=== PATIENT | male | born 1945 | race Caucasian/White ===

== ENCOUNTER 2016-10-09 12:02 | Inpatient (IN) | payer MEDICARE, BC ==
[~2016-10-09] VITALS: Ht 179.1 cm; Wt 117.0 kg
[~2016-10-09 12:02] MED LIST: ALIR75PE SQ; AMLO10TA2 PO; AMLO2.5T PO; AMLO5TAB2 PO; ASPI-496 PO; ASPI-621 PO; CALC-362 PO; CHOL100018 PO; CLON0.2T PO; CLOP75TA22 PO; DOCU-30 PO; DOXA8TAB63 PO; FEBU80TA2 PO; FURO20TA3 PO; HYDR-3343 PO; NEBI10TA3 PO; OMEG1CAP34 PO; OMEP-110 PO; SODI650T PO; SPIR25TA3 PO
[2016-10-09] MEDS ORDERED: SODIUM CHLORIDE 0.9% 1,000ML IVBOLUS ONE (13:00)
[2016-10-09] MEDS ORDERED: FAMOTIDINE 20 MG/2 ML IVPush ONE (13:00)
[2016-10-09] MEDS ORDERED: SODIUM CHLORIDE FLUSH 10ML SYR IVF ONE (13:00)
[2016-10-09] MEDS ORDERED: ONDANSETRON 2MG/ML, 2ML IVPush ONE (13:00)
[2016-10-09 13:37] LABS: ASPARTATE AMINO TRANSFERASE 16 U/L (15-37)
[2016-10-09 13:39] LABS: BLOOD UREA NITROGEN 126 mg/dL (7-18)
[2016-10-09] MEDS ORDERED: PANTOPRAZOLE 80 MG in SODIUM CHLORIDE 0.9% 100 ML IVPB ONE (14:21)
[2016-10-09] MEDS ORDERED: SODIUM CHLORIDE 0.9% 1,000 ML IV ONE (14:39)
[2016-10-09] MEDS ORDERED: ACETAMINOPHEN 325 MG TABLET PO PRN (15:00)
[2016-10-09] MEDS ORDERED: ONDANSETRON 2MG/ML, 2ML IVPush PRN (15:00)
[2016-10-09] MEDS ORDERED: TEMAZEPAM 15 MG CAPSULE PO PRN (15:00)
[2016-10-09] MEDS ORDERED: SODIUM POLYSTYRENE SULFONATE ORAL SUSP PO ONE (15:00)
[2016-10-09] MEDS ORDERED: SODIUM CHLORIDE FLUSH 10ML SYR IVF PRN (15:00)
[2016-10-09] MEDS ORDERED: HYDROcodone/APAP 5/325 TABLET PO PRN (15:00)
[2016-10-09 16:01] VITALS: BP 179/70
[2016-10-09] MEDS ORDERED: hydrALAzine 20 MG/ML, 1ML IV PRN (17:00)
[2016-10-09] MEDS: PANTOPRAZOLE 80 MG in SODIUM CHLORIDE 0.9% 100 ML IV SCH ×2 (17:02→17:40)
[2016-10-09] MEDS: SODIUM CHLORIDE 0.9% 1,000 ML IV SCH (17:40)
[2016-10-09] MEDS: SODIUM BICARBONATE 650 MG TABLET PO SCH ×2 (17:40→22:37)
[2016-10-09 19:00] VITALS: BP 122/63
[2016-10-09 19:01] LABS: ASPARTATE AMINO TRANSFERASE 16 U/L (15-37)
[2016-10-09 19:53] LABS: PATH.CAST-FLAG NOT PRESENT; SPERM-FLAG NOT PRESENT; SRC-FLAG NOT PRESENT; XTAL-FLAG NOT PRESENT; YLC-FLAG NOT PRESENT
[2016-10-09] MEDS: DOCUSATE 100 MG CAPSULE PO SCH (21:00)
[2016-10-09] MEDS: NEBIVOLOL HCL 5 MG TABLET PO SCH (22:37)
[2016-10-09] MEDS: AMLODIPINE 2.5 MG TABLET PO SCH (22:37)
[2016-10-09] MEDS: TAMSULOSIN 0.4 MG CAP.ER.24H PO SCH (23:16)
[2016-10-10] VITALS (10 sets, daily range): BP systolic 118–147; BP diastolic 45–76
[2016-10-10] MEDS: PANTOPRAZOLE 80 MG in SODIUM CHLORIDE 0.9% 100 ML IV SCH ×5 (00:21→21:16)
[2016-10-10 05:57] LABS: BLOOD UREA NITROGEN 100 mg/dL (7-18)
[2016-10-10] MEDS: SODIUM CHLORIDE 0.9% 1,000 ML IV SCH (06:41)
[2016-10-10] MEDS: DOCUSATE 100 MG CAPSULE PO SCH ×2 (09:00→20:36)
[2016-10-10] MEDS: SODIUM BICARBONATE 650 MG TABLET PO SCH (09:00)
[2016-10-10] MEDS: AMLODIPINE 2.5 MG TABLET PO SCH ×2 (09:00→20:36)
[2016-10-10] MEDS: NEBIVOLOL HCL 5 MG TABLET PO SCH ×2 (09:00→20:36)
[2016-10-10] MEDS ORDERED: FENTANYL PF 100 MCG/2ML ONE (11:49)
[2016-10-10] MEDS ORDERED: DARBEPOETIN 100 MCG/ML SQ SCH (12:00)
[2016-10-10] MEDS: FEBUXOSTAT 40 MG TABLET PO SCH (12:17)
[2016-10-10] MEDS: TAMSULOSIN 0.4 MG CAP.ER.24H PO SCH (20:36)
[2016-10-11 01:53] VITALS: BP 128/71
[2016-10-11 06:02] LABS: ASPARTATE AMINO TRANSFERASE 13 U/L (15-37)
[2016-10-11 06:08] LABS: BLOOD UREA NITROGEN 77 mg/dL (7-18)
[2016-10-11 07:46] VITALS: BP 133/66
[2016-10-11] MEDS: NEBIVOLOL HCL 5 MG TABLET PO SCH ×2 (08:04→20:46)
[2016-10-11] MEDS: DOCUSATE 100 MG CAPSULE PO SCH ×2 (08:05→20:47)
[2016-10-11] MEDS: FEBUXOSTAT 40 MG TABLET PO SCH (08:05)
[2016-10-11] MEDS: AMLODIPINE 2.5 MG TABLET PO SCH ×2 (08:05→20:47)
[2016-10-11] MEDS: PANTOPRAZOLE 80 MG in SODIUM CHLORIDE 0.9% 100 ML IV SCH ×2 (08:54→20:30)
[2016-10-11] MEDS ORDERED: PROPOFOL 10 MG/ML, 20ML ONE (10:36)
[2016-10-11 12:12] LABS: HEP B SURF. AB < 3.1 mIU/mL (0.0-10.0)
[2016-10-11 14:14] VITALS: BP 119/66
[2016-10-11] MEDS ORDERED: BUPIVACAINE/PF-EPI 0.25% 1:200K ONE (17:37)
[2016-10-11] MEDS ORDERED: HEPARIN 1,000 UNITS/ML, 10ML ONE (17:37)
[2016-10-11] MEDS ORDERED: KETAMINE 10 MG/ML, 20ML ONE (17:38)
[2016-10-11] MEDS ORDERED: FENTANYL PF 100 MCG/2ML ONE (17:39)
[2016-10-11] MEDS ORDERED: ALBUTEROL SULFATE 2.5 MG/3 ML NPPB PRN (18:00)
[2016-10-11] MEDS ORDERED: HYDROmorphone 1 MG/ML, 1ML IV PRN (18:00)
[2016-10-11] MEDS ORDERED: hydrALAzine 20 MG/ML, 1ML IV PRN (18:00)
[2016-10-11] MEDS ORDERED: METOPROLOL 1 MG/ML, 5ML IV PRN (18:00)
[2016-10-11] MEDS ORDERED: FENTANYL PF 100 MCG/2ML IV PRN (18:00)
[2016-10-11] MEDS ORDERED: ACETAMINOPHEN 325 MG TABLET PO PRN (18:00)
[2016-10-11] MEDS ORDERED: ACETAMINOPHEN 325 MG TABLET ONE (19:05)
[2016-10-11] MEDS: TAMSULOSIN 0.4 MG CAP.ER.24H PO SCH (20:47)
[2016-10-12 00:44] VITALS: BP 110/72
[2016-10-12 05:50] LABS: BLOOD UREA NITROGEN 63 mg/dL (7-18)
[2016-10-12] MEDS: PANTOPRAZOLE 80 MG in SODIUM CHLORIDE 0.9% 100 ML IV SCH (07:09)
[2016-10-12 08:00] VITALS: BP 121/58
[2016-10-12] MEDS: FEBUXOSTAT 40 MG TABLET PO SCH (08:36)
[2016-10-12] MEDS ORDERED: OMEP40CA6 PO (09:59)
[2016-10-12 14:00] VITALS: BP 112/61
== END 2016-10-12 17:15 | disposition home or self-care (01) | DRG 356 ==
LOC: SUATTDRO 14:29 → ED 14:38 → EDIP 14:39 → ED 15:13 → 4WST 15:58 → DCLOUNGE 10-12 15:50
PROC: 5A1D60Z (ICD-10-PCS; 2016-10-09)
PROC: 0W3P8ZZ Control Bleeding in Gastrointestinal Tract, Via Natural or Artificial Opening Endoscopic (ICD-10-PCS; 2016-10-10)
PROC: 30233N1 Transfusion of Nonautologous Red Blood Cells into Peripheral Vein, Percutaneous Approach (ICD-10-PCS; principal; 2016-10-10 13:30)
PROC: 0WPG33Z Removal of Infusion Device from Peritoneal Cavity, Percutaneous Approach (ICD-10-PCS; 2016-10-11)
PROC: 0WHG33Z Insertion of Infusion Device into Peritoneal Cavity, Percutaneous Approach (ICD-10-PCS; 2016-10-11)
DX: K31.811 Angiodysplasia of stomach and duodenum with bleeding (principal); K85.90 Acute pancreatitis without necrosis or infection, unspecified; N18.6 End stage renal disease; E44.0 Moderate protein-calorie malnutrition; E87.2 Acidosis; I13.11 Hypertensive heart and chronic kidney disease without heart failure, with stage 5 chronic kidney disease, or end stage renal disease; N17.9 Acute kidney failure, unspecified; K92.1 Melena; D50.0 Iron deficiency anemia secondary to blood loss (chronic); D63.1 Anemia in chronic kidney disease; E87.5 Hyperkalemia; G47.33 Obstructive sleep apnea (adult) (pediatric); I35.0 Nonrheumatic aortic (valve) stenosis; Z66 Do not resuscitate; Z96.643 Presence of artificial hip joint, bilateral; I25.10 Atherosclerotic heart disease of native coronary artery without angina pectoris; K62.7 Radiation proctitis; M10.00 Idiopathic gout, unspecified site; Z68.36 Body mass index [BMI] 36.0-36.9, adult; Z82.49 Family history of ischemic heart disease and other diseases of the circulatory system; Z85.46 Personal history of malignant neoplasm of prostate; Z87.891 Personal history of nicotine dependence; Z92.3 Personal history of irradiation; Z95.5 Presence of coronary angioplasty implant and graft; Z99.2 Dependence on renal dialysis; Z88.8 Allergy status to other drugs, medicaments and biological substances
CPT/HCPCS: 36415; 76700; 80048; 80053; 80069; 80076; 81001; 82306; 82436; 82570; 82728; 83540; 83550; 83690; 83735; 83970; 84100; 84133; 84300; 84478; 84550; 85018; 85025; 85610; 85730; 86480; 86677; 86704; 86706; 86850; 86900; 86923; 87340; 93005; 99152; 99291; J0881; J1644; J2704; J3010; C9113; J7030; P9016

== ENCOUNTER 2016-10-29 10:56 | Day surgery (SDC) | payer MEDICARE, BC ==
[~2016-10-29] VITALS: Ht 179.1 cm; Wt 115.0 kg
[~2016-10-29 10:56] MED LIST changes: +CEFAZOLIN 1,000 MG ONE; +OMEP40CA6 PO; +ONDANSETRON 2MG/ML, 2ML ONE; +PROPOFOL 10 MG/ML, 20ML ONE; +ROCURONIUM 10 MG/ML ONE
[2016-10-29 11:31] VITALS: BP 121/66
[2016-10-29] MEDS ORDERED: LACTATED RINGERS 1,000 ML IV SCH (11:33)
[2016-10-29 13:18] LABS: ASPARTATE AMINO TRANSFERASE 20 U/L (15-37); BLOOD UREA NITROGEN 50 mg/dL (7-18)
[2016-10-29] MEDS ORDERED: BUPIVACAINE/PF-EPI 0.5% 1:200K ONE (13:23)
[2016-10-29] MEDS ORDERED: FENTANYL PF 250 MCG/5ML ONE (13:26)
[2016-10-29] MEDS ORDERED: MIDAZOLAM 1 MG/ML, 2ML IV PRN (14:00)
[2016-10-29] MEDS ORDERED: ONDANSETRON 2MG/ML, 2ML IVPush PRN (14:00)
[2016-10-29] MEDS ORDERED: PROMETHAZINE 25 MG/ML, 1ML IV PRN (14:00)
[2016-10-29] MEDS ORDERED: LABETALOL 5MG/ML, 20ML IV PRN (14:00)
[2016-10-29] MEDS ORDERED: hydrALAzine 20 MG/ML, 1ML IV PRN (14:00)
[2016-10-29] MEDS ORDERED: OXYcodone 5 MG/5 ML ORAL.SOL UDC PO PRN (14:00)
[2016-10-29] MEDS: FENTANYL PF 100 MCG/2ML IV PRN ×2 (15:10→15:21)
[2016-10-29] MEDS ORDERED: FENTANYL PF 100 MCG/2ML ONE (15:11)
[2016-10-29] MEDS ORDERED: HYDROmorphone 2 MG/ML, 1ML ONE (15:22)
[2016-10-29] MEDS: HYDROmorphone 1 MG/ML, 1ML IV PRN ×4 (15:26→15:59)
== END 2016-10-29 19:45 | disposition home or self-care (01) ==
LOC: OUT 10:56
PROVIDERS: ATTEND Surgery
DX: T85.691A Other mechanical complication of intraperitoneal dialysis catheter, initial encounter (principal); G47.33 Obstructive sleep apnea (adult) (pediatric); I12.0 Hypertensive chronic kidney disease with stage 5 chronic kidney disease or end stage renal disease; N18.6 End stage renal disease; Z99.2 Dependence on renal dialysis; Z85.46 Personal history of malignant neoplasm of prostate; Z95.5 Presence of coronary angioplasty implant and graft; Z88.8 Allergy status to other drugs, medicaments and biological substances; Y83.8 Other surgical procedures as the cause of abnormal reaction of the patient, or of later complication, without mention of misadventure at the time of the procedure
CPT/HCPCS: 36415; 49325; 80053; 85025; C1727; C1769; J0690; J1170; J2405; J2704; J3010; J7120

== ENCOUNTER 2016-11-12 06:49 | Day surgery (SDC) | payer MEDICARE, BC ==
[~2016-11-12] VITALS: Ht 180.3 cm; Wt 114.5 kg
[~2016-11-12 06:49] MED LIST changes: -CEFAZOLIN 1,000 MG ONE; -ONDANSETRON 2MG/ML, 2ML ONE; -PROPOFOL 10 MG/ML, 20ML ONE; -ROCURONIUM 10 MG/ML ONE
[2016-11-12] MEDS ORDERED: SODIUM CHLORIDE 0.9% 1,000 ML IV SCH (07:22)
[2016-11-12 07:43] VITALS: BP 132/79
[2016-11-12] MEDS ORDERED: MIDAZOLAM 1 MG/ML, 2ML ONE (08:44)
[2016-11-12] MEDS ORDERED: FENTANYL PF 250 MCG/5ML ONE (08:44)
[2016-11-12] MEDS ORDERED: BUPIVACAINE/PF-EPI 0.5% 1:200K ONE ×2 (08:50→10:41)
[2016-11-12] MEDS ORDERED: NEOSTIGMINE 1 MG/ML, 10ML ONE (09:07)
[2016-11-12] MEDS ORDERED: ROCURONIUM 10 MG/ML ONE (09:07)
[2016-11-12] MEDS ORDERED: CEFAZOLIN 1,000 MG ONE (09:07)
[2016-11-12] MEDS ORDERED: ONDANSETRON 2MG/ML, 2ML ONE (09:07)
[2016-11-12] MEDS ORDERED: PROPOFOL 10 MG/ML, 20ML ONE (09:07)
[2016-11-12] MEDS ORDERED: GLYCOPYRROLATE 0.2MG/1ML ONE (09:07)
[2016-11-12] MEDS ORDERED: DEXAMETHASONE 4 MG/ML, 1ML ONE (09:07)
[2016-11-12] MEDS ORDERED: MEPERIDINE/PF 25MG/0.5ML IVPush PRN (10:00)
[2016-11-12] MEDS ORDERED: HYDROmorphone 1 MG/ML, 1ML IV PRN (10:00)
[2016-11-12] MEDS ORDERED: PROMETHAZINE 25 MG/ML, 1ML IV PRN (10:00)
[2016-11-12] MEDS ORDERED: ONDANSETRON 2MG/ML, 2ML IVPush PRN ×2 (10:00→12:00)
[2016-11-12] MEDS ORDERED: OXYcodone 5 MG/5 ML ORAL.SOL UDC PO PRN (10:00)
[2016-11-12] MEDS ORDERED: MIDAZOLAM 1 MG/ML, 2ML IV PRN (10:00)
[2016-11-12] MEDS ORDERED: ALBUTEROL/IPRATROPIUM 2.5MG/0.5MG, 3 ML NPPB PRN (10:00)
[2016-11-12] MEDS ORDERED: hydrALAzine 20 MG/ML, 1ML IV PRN (10:00)
[2016-11-12] MEDS ORDERED: ACETAMINOPHEN 325 MG TABLET PO PRN (10:00)
[2016-11-12] MEDS ORDERED: LABETALOL 5MG/ML, 20ML IV PRN (10:00)
[2016-11-12] MEDS ORDERED: OXYcodone 5 MG/5 ML ORAL.SOL UDC ONE (10:41)
[2016-11-12] MEDS ORDERED: FENTANYL PF 100 MCG/2ML ONE (10:41)
[2016-11-12] MEDS ORDERED: HYDROmorphone 1 MG/ML, 1ML ONE (10:41)
[2016-11-12] MEDS: FENTANYL PF 100 MCG/2ML IV PRN ×2 (10:44→10:50)
[2016-11-12 11:45] VITALS: BP 151/55
[2016-11-12] MEDS ORDERED: HYDROcodone/APAP 5/325 TABLET PO PRN (12:00)
[2016-11-12] MEDS ORDERED: MORPHINE SULFATE 4 MG/ML, 1ML IVPush PRN (12:00)
[2016-11-12] MEDS ORDERED: DIPHENHYDRAMINE 50 MG/ML, 1ML IVPush PRN (12:00)
[2016-11-12] MEDS ORDERED: HEPARIN 5,000 UNITS/ML, 1ML SQ SCH (13:00)
[2016-11-12] MEDS ORDERED: HYDR-3240 PO ×2 (13:23→13:24)
[2016-11-12] MEDS ORDERED: SODIUM BICARBONATE 650 MG TABLET PO SCH (16:00)
[2016-11-13] MEDS ORDERED: NEBIVOLOL HCL 5 MG TABLET PO SCH (06:00)
[2016-11-13] MEDS ORDERED: MAGNESIUM OXIDE 400 MG TABLET PO SCH (09:00)
[2016-11-13] MEDS ORDERED: CALCIUM CARBONATE 500 MG TABLET PO SCH (09:00)
[2016-11-13] MEDS ORDERED: CHOLECALCIFEROL 1,000 UNIT TABLET PO SCH (09:00)
[2016-11-13] MEDS ORDERED: FOLIC ACID 1 MG TABLET PO SCH (09:00)
[2016-11-13] MEDS ORDERED: FEBUXOSTAT 40 MG TABLET PO SCH (09:00)
[2016-11-13] MEDS ORDERED: FUROSEMIDE 20 MG TABLET PO SCH (09:00)
== END 2016-11-12 14:00 | disposition home or self-care (01) ==
LOC: OUT 06:49 → 4NOR 11:34 → OUT 14:00
PROVIDERS: ATTEND Surgery
DX: T85.611A Breakdown (mechanical) of intraperitoneal dialysis catheter, initial encounter (principal); I12.0 Hypertensive chronic kidney disease with stage 5 chronic kidney disease or end stage renal disease; N18.6 End stage renal disease; K21.9 Gastro-esophageal reflux disease without esophagitis; I25.10 Atherosclerotic heart disease of native coronary artery without angina pectoris; Z95.1 Presence of aortocoronary bypass graft; E03.9 Hypothyroidism, unspecified; Z88.8 Allergy status to other drugs, medicaments and biological substances; Z87.39 Personal history of other diseases of the musculoskeletal system and connective tissue; Y83.9 Surgical procedure, unspecified as the cause of abnormal reaction of the patient, or of later complication, without mention of misadventure at the time of the procedure; Y92.9 Unspecified place or not applicable
CPT/HCPCS: 36415; 36832; 49320; 80047; 85025; 85610; 85730; J0690; J1100; J2250; J2405; J2704; J2710; J3010; J7030; J3490

== ENCOUNTER 2016-11-18 15:25 | Inpatient (IN) | payer MEDICARE, BC ==
[~2016-11-18] VITALS: Ht 180.3 cm; Wt 115.4 kg
[~2016-11-18 15:25] MED LIST changes: +HYDR-3240 PO
[2016-11-18] MEDS ORDERED: SODIUM CHLORIDE 0.9% 1,000 ML IV ONE (16:13)
[2016-11-18] MEDS ORDERED: HYDROmorphone 1 MG/ML, 1ML ONE ×3 (16:21→19:11)
[2016-11-18] MEDS ORDERED: ONDANSETRON 2MG/ML, 2ML ONE (16:22)
[2016-11-18] MEDS: HYDROmorphone 1 MG/ML, 1ML IVPush PRN ×2 (16:23→19:12)
[2016-11-18] MEDS ORDERED: ONDANSETRON 2MG/ML, 2ML IVPush ONE (16:30)
[2016-11-18] MEDS ORDERED: SODIUM CHLORIDE FLUSH 10ML SYR IVF ONE (16:30)
[2016-11-18 16:45] LABS: ASPARTATE AMINO TRANSFERASE 16 U/L (15-37); BLOOD UREA NITROGEN 82 mg/dL (7-18)
[2016-11-18] MEDS ORDERED: OMNIPAQUE 350 MG/ML, 100ML BOTTLE ONE (19:47)
[2016-11-18] MEDS ORDERED: SODIUM CHLORIDE FLUSH 10ML SYR IVF PRN (20:00)
[2016-11-18] MEDS ORDERED: ONDANSETRON 2MG/ML, 2ML IVPush PRN (20:30)
[2016-11-18] MEDS ORDERED: POLYETHYLENE GLYCOL 17 GM PACKET PO PRN (20:30)
[2016-11-18] MEDS ORDERED: TEMAZEPAM 15 MG CAPSULE PO PRN (20:30)
[2016-11-18] MEDS ORDERED: OMEP-110 PO (20:59)
[2016-11-18] MEDS ORDERED: TAMS0.4C2 PO (20:59)
[2016-11-18] MEDS ORDERED: AMLO2.5T PO (20:59)
[2016-11-18] MEDS ORDERED: FURO80TA3 PO (20:59)
[2016-11-18] MEDS ORDERED: SEVE800T8 PO (20:59)
[2016-11-18 22:16] VITALS: BP 151/70
[2016-11-18] MEDS: HEPARIN 5,000 UNITS/ML, 1ML SQ SCH (22:38)
[2016-11-18] MEDS: HYDROmorphone 2 MG/ML, 1ML IVPush PRN (22:45)
[2016-11-19] MEDS: HYDROmorphone 2 MG/ML, 1ML IVPush PRN ×4 (02:03→19:37)
[2016-11-19 02:44] VITALS: BP 109/56
[2016-11-19] MEDS: HEPARIN 5,000 UNITS/ML, 1ML SQ SCH ×3 (05:43→22:04)
[2016-11-19 06:12] LABS: ASPARTATE AMINO TRANSFERASE 15 U/L (15-37); BLOOD UREA NITROGEN 81 mg/dL (7-18)
[2016-11-19 07:11] VITALS: BP 129/67
[2016-11-19 15:13] VITALS: BP 157/77
[2016-11-19 18:53] VITALS: BP 163/70
[2016-11-20 02:00] VITALS: BP 142/78
[2016-11-20] MEDS: HYDROmorphone 2 MG/ML, 1ML IVPush PRN (06:06)
[2016-11-20] MEDS: HEPARIN 5,000 UNITS/ML, 1ML SQ SCH ×3 (06:07→21:16)
[2016-11-20 07:43] VITALS: BP 142/72
[2016-11-20] MEDS: HYDROcodone/APAP 5/325 TABLET PO PRN ×2 (10:03→15:58)
[2016-11-20] MEDS ORDERED: VANCOMYCIN IV ONE (12:00)
[2016-11-20 14:00] VITALS: BP 179/82
[2016-11-20] MEDS ORDERED: CEFTAZIDIME IV ONE (18:00)
[2016-11-20 19:47] VITALS: BP 152/65
[2016-11-21] MEDS: HYDROcodone/APAP 5/325 TABLET PO PRN ×5 (02:09→18:39)
[2016-11-21 03:59] VITALS: BP 150/76
[2016-11-21] MEDS: HEPARIN 5,000 UNITS/ML, 1ML SQ SCH ×3 (05:35→20:53)
[2016-11-21 06:01] LABS: BLOOD UREA NITROGEN 70 mg/dL (7-18)
[2016-11-21 07:12] VITALS: BP 165/71
[2016-11-21] MEDS ORDERED: CEFTAZIDIME IV ONE (09:30)
[2016-11-21 13:00] VITALS: BP 167/74
[2016-11-21] MEDS: GENTAMICIN CRM 0.1%, 30GM TP SCH (14:55)
[2016-11-21 18:55] VITALS: BP 152/64
[2016-11-21] MEDS: HYDROmorphone 2 MG/ML, 1ML IVPush PRN (20:55)
[2016-11-22 00:54] VITALS: BP 180/78
[2016-11-22] MEDS: HYDROcodone/APAP 5/325 TABLET PO PRN ×4 (01:33→16:00)
[2016-11-22] MEDS: HEPARIN 5,000 UNITS/ML, 1ML SQ SCH ×3 (05:27→20:23)
[2016-11-22 07:48] VITALS: BP 170/91
[2016-11-22 09:39] LABS: BLOOD UREA NITROGEN 69 mg/dL (7-18)
[2016-11-22] MEDS: HYDROmorphone 2 MG/ML, 1ML IVPush PRN ×2 (11:06→18:33)
[2016-11-22 13:58] VITALS: BP 202/81
[2016-11-22] MEDS ORDERED: hydrALAzine 20 MG/ML, 1ML IV PRN (14:30)
[2016-11-22 15:20] VITALS: BP 181/74
[2016-11-22] MEDS: NEBIVOLOL HCL 5 MG TABLET PO SCH (15:47)
[2016-11-22] MEDS: SEVELAMER 800MG TABLET PO SCH (17:00)
[2016-11-22 17:19] VITALS: BP 160/69
[2016-11-22] MEDS: AMLODIPINE 2.5 MG TABLET PO SCH (17:21)
[2016-11-22] MEDS ORDERED: CEFTAZIDIME INJ ONE (18:30)
[2016-11-22] MEDS ORDERED: SODIUM CHLORIDE 0.9% INJ ONE (18:30)
[2016-11-22] MEDS: GENTAMICIN CRM 0.1%, 30GM TP SCH (18:37)
[2016-11-22 20:48] VITALS: BP 173/65
[2016-11-22] MEDS ORDERED: TAMSULOSIN 0.4 MG CAP.ER.24H PO SCH (21:00)
[2016-11-23] MEDS: HYDROmorphone 2 MG/ML, 1ML IVPush PRN ×2 (01:10→11:01)
[2016-11-23 02:00] VITALS: BP 168/78
[2016-11-23 05:57] LABS: BLOOD UREA NITROGEN 77 mg/dL (7-18)
[2016-11-23] MEDS: HEPARIN 5,000 UNITS/ML, 1ML SQ SCH (06:00)
[2016-11-23 06:38] VITALS: BP 153/74
[2016-11-23] MEDS: SEVELAMER 800MG TABLET PO SCH (08:00)
[2016-11-23] MEDS ORDERED: VANCOMYCIN INJ ONE ×2 (08:30→13:30)
[2016-11-23] MEDS ORDERED: CEFTAZIDIME INJ ONE ×2 (08:30→13:30)
[2016-11-23] MEDS ORDERED: SODIUM CHLORIDE 0.9% INJ ONE ×2 (08:30→13:30)
[2016-11-23] MEDS ORDERED: CHOLECALCIFEROL 1,000 UNIT TABLET PO SCH (09:00)
[2016-11-23] MEDS ORDERED: FUROSEMIDE 80 MG TABLET PO SCH (09:00)
[2016-11-23] MEDS ORDERED: FEBUXOSTAT 40 MG TABLET PO SCH (09:00)
[2016-11-23] MEDS: AMLODIPINE 2.5 MG TABLET PO SCH (09:56)
[2016-11-23] MEDS: NEBIVOLOL HCL 5 MG TABLET PO SCH (09:56)
[2016-11-23] MEDS: HYDROcodone/APAP 5/325 TABLET PO PRN (10:05)
[2016-11-23 14:14] VITALS: BP 180/82
[2016-11-23] MEDS ORDERED: VANC2PLA3 IV (15:10)
[2016-11-23] MEDS ORDERED: CEFT2PIG IV (15:10)
[2016-11-23 15:34] VITALS: BP 140/61
[2016-11-23] MEDS ORDERED: TAMSULOSIN 0.4 MG CAP.ER.24H PO SCH (21:00)
== END 2016-11-23 16:28 | disposition home or self-care (01) | DRG 919 ==
LOC: ED 16:31 → EDIP 19:38 → 4WST 21:11
PROVIDERS: ADMIT Internal Medicine; ATTEND Internal Medicine
PROC: 5A09357 Assistance with Respiratory Ventilation, Less than 24 Consecutive Hours, Continuous Positive Airway Pressure (ICD-10-PCS; principal; 2016-11-19)
DX: T85.611A Breakdown (mechanical) of intraperitoneal dialysis catheter, initial encounter (principal); N18.6 End stage renal disease; E43 Unspecified severe protein-calorie malnutrition; K65.2 Spontaneous bacterial peritonitis; E87.1 Hypo-osmolality and hyponatremia; J98.11 Atelectasis; I12.0 Hypertensive chronic kidney disease with stage 5 chronic kidney disease or end stage renal disease; Z96.651 Presence of right artificial knee joint; Z96.652 Presence of left artificial knee joint; Y84.1 Kidney dialysis as the cause of abnormal reaction of the patient, or of later complication, without mention of misadventure at the time of the procedure; D63.1 Anemia in chronic kidney disease; E78.5 Hyperlipidemia, unspecified; G47.33 Obstructive sleep apnea (adult) (pediatric); I25.10 Atherosclerotic heart disease of native coronary artery without angina pectoris; M10.9 Gout, unspecified; Z82.49 Family history of ischemic heart disease and other diseases of the circulatory system; Z85.46 Personal history of malignant neoplasm of prostate; Z95.5 Presence of coronary angioplasty implant and graft; Z99.2 Dependence on renal dialysis; Z68.35 Body mass index [BMI] 35.0-35.9, adult; Z87.891 Personal history of nicotine dependence; Z88.8 Allergy status to other drugs, medicaments and biological substances
CPT/HCPCS: 36415; 71010; 74177; 80053; 80069; 80202; 83605; 83735; 84100; 84145; 85025; 85610; 85730; 86480; 86704; 86706; 86708; 86803; 87040; 87070; 87205; 87340; 89051; 96361; 96374; 96375; 96376; J0713; J1170; J1644; J2405; J3370; Q9967; J7030